=== PATIENT | male | born 1950 | race Caucasian/White ===

== ENCOUNTER 2019-07-14 12:04 | Outpatient (REF) | payer BC, SELFPAY ==
[2019-07-14 22:08] LABS: Anion Gap 8.1 mmol/L (3-11); BUN 21 mg/dL (7-18); CO2 30.9 mmol/L (21.0-32.0); CREATININE 0.84 mg/dL (0.70-1.30); Calcium 8.8 mg/dL (8.5-10.1); Calculated LDL 143 mg/dL; Chloride 102 mmol/L (98-107); Cholesterol 233 mg/dL (<200); Glucose 123 mg/dL (74-106); HDL Cholesterol 64 mg/dL (40-60); Potassium 3.6 mmol/L (3.5-5.1); Sodium 141 mmol/L (136-145); Triglyceride 132 mg/dL (<150)
== END 2019-07-14 12:24 ==
LOC: NCHCN 12:04
PROVIDERS: PCP Internal Medicine; Visit Provider Internal Medicine
DX: I10 Essential (primary) hypertension (principal); Z13.6 Encounter for screening for cardiovascular disorders
CPT/HCPCS: 80048; 80061

== ENCOUNTER 2020-01-21 10:04 | Outpatient (REF) | payer BC, SELFPAY ==
[2020-01-21 21:10] LABS: Anion Gap 9.1 mmol/L (3-11); BUN 25 mg/dL (7-18); CO2 27.9 mmol/L (21.0-32.0); CREATININE 0.82 mg/dL (0.70-1.30); Calcium 8.8 mg/dL (8.5-10.1); Calculated LDL 140 mg/dL (<100); Chloride 103 mmol/L (98-107); Cholesterol 231 mg/dL (<200); Glucose 120 mg/dL (74-106); HDL Cholesterol 61 mg/dL (40-60); Potassium 3.4 mmol/L (3.5-5.1); Sodium 140 mmol/L (136-145); Triglyceride 153 mg/dL (<150)
== END 2020-01-21 10:24 ==
LOC: NCHCN 10:04
PROVIDERS: PCP Internal Medicine; Visit Provider Internal Medicine
DX: E78.5 Hyperlipidemia, unspecified (principal); R73.03 Prediabetes; I10 Essential (primary) hypertension
CPT/HCPCS: 80048; 80061; 83036

== ENCOUNTER 2020-02-17 11:31 | Outpatient (REF) | payer BC, SELFPAY ==
[2020-02-17 20:51] LABS: Potassium 3.5 mmol/L (3.5-5.1)
== END 2020-02-17 11:51 ==
LOC: NCHCN 11:31
PROVIDERS: PCP Internal Medicine; Visit Provider Internal Medicine
DX: I10 Essential (primary) hypertension (principal)
CPT/HCPCS: 84132

== ENCOUNTER 2020-12-21 11:56 | Outpatient (REF) | payer BC, SELFPAY ==
[2020-12-21 14:12] LABS: Anion Gap 9.1 mmol/L (3-11); BUN 25 mg/dL (7-18); CO2 28.9 mmol/L (21.0-32.0); CREATININE 0.9 mg/dL (0.70-1.30); Calcium 8.9 mg/dL (8.5-10.1); Calculated LDL 108 mg/dL (<100); Chloride 103 mmol/L (98-107); Cholesterol 193 mg/dL (<200); Glucose 133 mg/dL (74-106); HDL Cholesterol 58 mg/dL (40-60); Potassium 3.7 mmol/L (3.5-5.1); Sodium 141 mmol/L (136-145); Triglyceride 137 mg/dL (<150)
[2020-12-21 14:26] LABS: Hemoglobin A1C 6.4 % (<5.7)
== END 2020-12-21 11:57 | disposition home or self-care (01) ==
LOC: NCHCN 11:56
PROVIDERS: PCP Internal Medicine; Visit Provider Internal Medicine
DX: E78.5 Hyperlipidemia, unspecified (principal); R73.03 Prediabetes; I10 Essential (primary) hypertension
CPT/HCPCS: 80048; 80061; 83036

== ENCOUNTER 2021-03-10 09:05 | Outpatient (REF) | payer BC, SELFPAY ==
[2021-03-09 21:54] LABS: ALT 44 U/L (16-63); AST 25 U/L (15-37); Albumin 4.1 g/dL (3.4-5.0); Alkaline Phosphatase 86 U/L (46-116); Bilirubin, Direct 0.2 mg/dL (0.0-0.2); Bilirubin, Total 0.6 mg/dL (0.2-1.0); Total Protein 7.4 g/dL (6.4-8.2)
[2021-03-10 17:10] LABS: PSA, Screening 1.1 ng/mL (0.0-4.5)
== END 2021-03-10 09:06 | disposition home or self-care (01) ==
LOC: NCHCN 09:05
PROVIDERS: PCP Internal Medicine; Referring Provider Internal Medicine; Visit Provider Internal Medicine
DX: Z12.5 Encounter for screening for malignant neoplasm of prostate (principal); Z51.81 Encounter for therapeutic drug level monitoring
CPT/HCPCS: 80076; 84153

== ENCOUNTER 2021-06-20 16:19 | Outpatient (REF) | payer BC, SELFPAY ==
[2021-06-20 21:24] LABS: ALT 45 U/L (16-63); AST 30 U/L (15-37); Albumin 3.8 g/dL (3.4-5.0); Alkaline Phosphatase 76 U/L (46-116); Bilirubin, Direct 0.1 mg/dL (0.0-0.2); Bilirubin, Total 0.4 mg/dL (0.2-1.0); Total Protein 7.2 g/dL (6.4-8.2)
== END 2021-06-20 16:20 | disposition home or self-care (01) ==
LOC: NCHCN 16:19
PROVIDERS: PCP Internal Medicine; Visit Provider Internal Medicine
DX: B35.1 Tinea unguium (principal)
CPT/HCPCS: 80076

== ENCOUNTER 2022-03-29 16:11 | Outpatient (REF) | payer BC, SELFPAY ==
[2022-03-29 21:49] LABS: BUN 25 mg/dL (7-18); Calcium 9.2 mg/dL (8.5-10.1); Chloride 102 mmol/L (98-107); Estimated GFR 80.97 (mL/min/1.73m2); Glucose 108 mg/dL (74-106); Potassium 3.3 mmol/L (3.5-5.1); Sodium 140 mmol/L (136-145)
== END 2022-03-29 16:12 | disposition home or self-care (01) ==
LOC: NCHCN 16:11
PROVIDERS: PCP Internal Medicine; Visit Provider Internal Medicine
DX: I10 Essential (primary) hypertension (principal)
CPT/HCPCS: 80048

== ENCOUNTER 2022-08-22 11:31 | Outpatient (REF) | payer BC, SELFPAY ==
[2022-08-22 15:08] LABS: BUN 25 mg/dL (7-18); CREATININE 0.8 mg/dL (0.70-1.30); Calculated LDL 111 mg/dL (<100); Chloride 104 mmol/L (98-107); Cholesterol 196 mg/dL (<200); Estimated GFR 94.62 (mL/min/1.73m2); Glucose 155 mg/dL (74-106); HDL Cholesterol 72 mg/dL (40-60); Potassium 3.4 mmol/L (3.5-5.1); Sodium 143 mmol/L (136-145); Triglyceride 67 mg/dL (<150)
== END 2022-08-22 11:32 | disposition home or self-care (01) ==
LOC: NCHCN 11:31
PROVIDERS: PCP Internal Medicine; Visit Provider Internal Medicine
DX: Z00.00 Encounter for general adult medical examination without abnormal findings (principal); I10 Essential (primary) hypertension; R73.03 Prediabetes; E78.5 Hyperlipidemia, unspecified
CPT/HCPCS: 80048; 80061; 83036

== ENCOUNTER 2022-10-12 15:05 | Outpatient (REF) | payer BC, SELFPAY ==
[2022-10-12 21:56] LABS: BUN 25 mg/dL (7-18); CREATININE 0.9 mg/dL (0.70-1.30); Calcium 8.9 mg/dL (8.5-10.1); Chloride 101 mmol/L (98-107); Estimated GFR 91.31 (mL/min/1.73m2); Glucose 105 mg/dL (74-106); Potassium 3.7 mmol/L (3.5-5.1); Sodium 138 mmol/L (136-145)
== END 2022-10-12 15:06 | disposition home or self-care (01) ==
LOC: NCHCN 15:05
PROVIDERS: PCP Internal Medicine; Visit Provider Internal Medicine
DX: E87.6 Hypokalemia (principal); I10 Essential (primary) hypertension
CPT/HCPCS: 80048

== ENCOUNTER 2023-03-13 16:05 | Outpatient (REF) | payer BC, SELFPAY ==
[2023-03-13 17:02] LABS: HCT 38.3 % (40.0-50.0); HGB 12.4 g/dL (13.5-17.5); MCH 28.2 pg (27.0-33.0); MCHC 32.4 % (32.0-36.0); MCV 87 fL (80-95); MPV 8.5 fL (8.0-11.0); Platelet Count 463 10^3/uL (130-400); RDW 12.2 % (11.8-14.1); RDW-SD 39.3 fL; WBC 9.12 10^3/uL (4.4-10.8)
[2023-03-13 17:31] LABS: ALT 26 U/L (16-63); AST 29 U/L (15-37); Albumin 3.3 g/dL (3.4-5.0); Alkaline Phosphatase 81 U/L (46-116); BUN 16 mg/dL (7-18); Bilirubin, Total 0.3 mg/dL (0.2-1.0); CREATININE 0.8 mg/dL (0.70-1.30); Calcium 9.4 mg/dL (8.5-10.1); Chloride 102 mmol/L (98-107); Creatine Kinase 130 U/L (39-308); Estimated GFR 94.62 (mL/min/1.73m2); Glucose 97 mg/dL (74-106); Potassium 3.9 mmol/L (3.5-5.1); Sodium 137 mmol/L (136-145); Total Protein 7.6 g/dL (6.4-8.2)
[2023-03-15 10:25] LABS: Lyme Ab w Rflx to Lyme Confirm Negative (Negative)
[2023-03-16 21:44] LABS: Anaplasma phagocytophilum Negative (Negative); B. miyamotoi PCR Negative (Negative); Babesia divergens/MO-1 Negative (Negative); Babesia duncani Negative (Negative); Babesia microti Negative (Negative); Ehrlichia chaffeensis Negative (Negative); Ehrlichia ewingii/canis Negative (Negative); Ehrlichia muris eauclairensis Negative (Negative)
== END 2023-03-13 16:06 | disposition home or self-care (01) ==
LOC: NCHCN 16:05
PROVIDERS: PCP Internal Medicine; Visit Provider Internal Medicine
DX: M79.601 Pain in right arm (principal); M79.604 Pain in right leg; M79.605 Pain in left leg; R20.2 Paresthesia of skin; R20.0 Anesthesia of skin; I10 Essential (primary) hypertension
CPT/HCPCS: 80053; 82550; 85027; 87798; 86618

== ENCOUNTER 2023-03-14 17:59 | Outpatient (REF) | payer BC, SELFPAY ==
[2023-03-14 19:26] LABS: C-Reactive Protein 1.87 mg/dL (0.0-0.3)
[2023-03-14 19:36] LABS: Iron 33 ug/dL (65-175); Total Iron Binding Capacity 296 ug/dL (250-450); Transferrin Sat 11 % (20-55)
[2023-03-14 19:57] LABS: Ferritin 153 ng/mL (26-388)
== END 2023-03-14 18:00 | disposition home or self-care (01) ==
LOC: NCHCN 17:59
PROVIDERS: PCP Internal Medicine; Visit Provider Internal Medicine
DX: D64.9 Anemia, unspecified (principal); M79.18 Myalgia, other site
CPT/HCPCS: 82728; 83540; 83550; 86140

== ENCOUNTER 2023-04-19 10:15 | Outpatient (REF) | payer BC, SELFPAY ==
[2023-04-19 14:38] LABS: ESR 13 mm/hr (0-20)
[2023-04-19 15:06] LABS: BUN 23 mg/dL (7-18); CREATININE 0.9 mg/dL (0.70-1.30); Calcium 9.4 mg/dL (8.5-10.1); Chloride 102 mmol/L (98-107); Estimated GFR 91.31 (mL/min/1.73m2); Glucose 117 mg/dL (74-106); Potassium 3.6 mmol/L (3.5-5.1); Sodium 138 mmol/L (136-145)
[2023-04-19 15:12] LABS: C-Reactive Protein < 0.05 mg/dL (0.0-0.3)
== END 2023-04-19 10:16 | disposition home or self-care (01) ==
LOC: NCHCN 10:15
PROVIDERS: PCP Internal Medicine; Visit Provider Internal Medicine
DX: M35.3 Polymyalgia rheumatica (principal); E87.6 Hypokalemia; I10 Essential (primary) hypertension
CPT/HCPCS: 80048; 85652; 86140

== ENCOUNTER 2023-11-29 21:55 | Outpatient (REF) | payer BC, SELFPAY ==
[2023-11-29 21:27] LABS: COMMENT (LAB VIEW ONLY) 79.62 mg/dL; Microalb ug/mg Crea 7.2 ug/mg Cr
== END 2023-11-29 21:56 | disposition home or self-care (01) ==
LOC: NCHCN 21:55
PROVIDERS: PCP Internal Medicine; Visit Provider Internal Medicine
DX: E11.9 Type 2 diabetes mellitus without complications (principal)
CPT/HCPCS: 82043; 82570

== ENCOUNTER 2024-10-16 15:50 | Outpatient (REF) | payer BC, SELFPAY ==
[2024-10-16 15:15] LABS: HCT 40.2 % (40.0-50.0); MCH 27.7 pg (27.0-33.0); MCHC 32.3 % (32.0-36.0); MCV 86 fL (80-95); MPV 9.3 fL (8.0-11.0); Platelet Count 310 10^3/uL (130-400); RDW-SD 38.2 fL; WBC 5.92 10^3/uL (4.4-10.8)
[2024-10-16 15:38] LABS: Anion Gap 4.7 mmol/L (3-11); BUN 24 mg/dL (7-18); CO2 32.3 mmol/L (21.0-32.0); CREATININE 0.9 mg/dL (0.70-1.30); Calcium 8.6 mg/dL (8.5-10.1); Calculated LDL 89 mg/dL (<100); Chloride 106 mmol/L (98-107); Cholesterol 168 mg/dL (<200); Estimated GFR 90.18 (mL/min/1.73m2); Glucose 126 mg/dL (74-106); HDL Cholesterol 65 mg/dL (>or=40); Sodium 143 mmol/L (136-145); Triglyceride 70 mg/dL (<150)
[2024-10-16 15:57] LABS: Hemoglobin A1C 6.5 % (<5.7)
== END 2024-10-16 15:51 | disposition home or self-care (01) ==
LOC: NCHCN 15:50
PROVIDERS: PCP Internal Medicine; Visit Provider Internal Medicine
DX: I10 Essential (primary) hypertension (principal); E78.5 Hyperlipidemia, unspecified; E11.9 Type 2 diabetes mellitus without complications
CPT/HCPCS: 80048; 80061; 85027; 83036